=== PATIENT | male | born 1990 | race Caucasian/White ===

== ENCOUNTER → 2021-02-24 08:21 | Outpatient (CLI) | payer OTHER, SELFPAY ==
--- NOTE | 2021-02-24 | DI.MRI.S_ITS ---
PROCEDURE: MR SHOULDER RT WO CON INDICATIONS: Pain in right shoulder TECHNIQUE: Noncontrast oblique coronal T2 fast spin echo with fat saturation, oblique sagittal T1 spin echo and T2 fast spin echo with fat saturation, axial T1 spin echo and T2 fast spin echo with fat saturation through the shoulder. COMPARISON: None. FINDINGS: Rotator cuff: Supraspinatus and infraspinatus tendinopathy, with thickening and mild interstitial tearing. Low-grade bursal surface fraying of the critical zone of the supraspinatus tendon. Slit-like partial thickness articular sided tear of the footprint is seen, with adjacent reactive marrow edema. Teres minor appears intact. Subscapularis tendon appears intact. No atrophy of the rotator cuff muscles although mild fatty infiltration of the infraspinatus, and the subscapularis noted. Bones and bursae: No bone marrow contusions or fractures. No acromioclavicular joint degeneration. Acromion demonstrates conventional anatomy, without an os acromiale. Moderate to severe subacromial-subdeltoid bursitis. Capsule and soft tissues: Labrum: No definite fluid signal intensity seen within the labrum. There is mildly hypertrophic appearance of the anterior labrum, with amorphous low signal intrasubstance changes. There is minimal if any adjacent segmental degeneration in the glenoid, or chondral loss.. Glenohumeral ligaments: Inferior and superior glenohumeral ligaments are intact. Biceps tendon: Long head of the biceps tendon intact. Rotator interval: Normal signal intensity. Coracohumeral ligament: Intact. IMPRESSION: Partial-thickness rotator cuff tear as above, with moderate to severe adjacent subacromial-subdeltoid bursitis. Adjacent marrow edema in the greater tuberosity which could be reactive although small marrow contusion is conceivable. Mild hypertrophic appearance of the anterior labrum with low signal intrasubstance changes raising the possibility of labrocapsuloligamentous anatomic variation, potentially involving the IGHL anterior band, although low-grade chronic tear in the differential. Minimal if any adjacent degenerative changes in the glenoid/cartilage Dictated by: Israel Haider M.D. on 02/24/2021 at 9:36 Approved by: Israel Haider M.D. on 02/24/2021 at 10:15
== END ==
DX: M25.511 Pain in right shoulder (principal); M75.111 Incomplete rotator cuff tear or rupture of right shoulder, not specified as traumatic; M75.51 Bursitis of right shoulder
CPT/HCPCS: 73221